=== PATIENT | male | born 1970 | race Caucasian/White ===

== ENCOUNTER → 2017-04-23 | Outpatient (CLI) | payer SELFPAY ==
--- NOTE | 2017-04-24 08:29 | Diagnostic Imaging Report ---
#[id number] - USBRECOMRT ULTRASOUND OF THE RIGHT BREAST : 04/23/2017 Comparison is made to exam dated: 04/23/2017 mammogram - [facility]. Color flow and real-time ultrasound were performed on the entire right breast with scanning in all four quadrants, retroareolar region and the right axilla. There is no cystic or solid mass seen. IMPRESSION: NEGATIVE There is no sonographic evidence of malignancy. Follow-up with ACR/ACS guidelines. Kendrick Rudd Jr., D.O. cw/:04/23/2017 14:56:06 Collections And Archives Director: ÁNGEL NGUYEN, [facility] letter sent: Normal Exam Ultrasound BI-RADS: 1 Negative
--- NOTE | 2017-04-24 08:29 | Diagnostic Imaging Report ---
#[id number] - MGDXBI #MALE BILATERAL DIGITAL DIAGNOSTIC MAMMOGRAM WITH CAD: 04/23/2017 No prior exams were available for comparison. Current study contains 4 films. Current study was also evaluated with a Computer Aided Detection (CAD) system. No significant masses, calcifications or other findings are seen in either breast. IMPRESSION: BENIGN There is no mammographic evidence of malignancy. The patient was notified of the results of this study. Kendrick Rudd Jr., D.O. cw/:04/23/2017 14:38:33 Account Receivable Associate: Lyndsay MILLER(Jeremias)(M), [facility] letter sent: Normal Exam Mammogram BI-RADS: 2 Benign
--- NOTE | 2017-04-24 08:29 | Diagnostic Imaging Report ---
#[id number] - USBRECOMLT ULTRASOUND OF THE LEFT BREAST : 04/23/2017 Comparison is made to exam dated: 04/23/2017 mammogram - [facility]. Color flow and real-time ultrasound were performed on the entire left breast with scanning in all four quadrants, retroareolar region and the left axilla. There is no cystic or solid mass seen. IMPRESSION: NEGATIVE There is no sonographic evidence of malignancy. Follow-up with ACR/ACS guidelines. Kendrick Rudd Jr., D.O. cw/:04/23/2017 14:55:32 Mica Machine Operator: ÁNGEL NGUYEN, [facility] letter sent: Normal Exam Ultrasound BI-RADS: 1 Negative
== END ==
LOC: MAMMO 13:28
PROVIDERS: ATTEND Family Medicine
DX: N63.0 Unspecified lump in unspecified breast (principal)